=== PATIENT | female | born 1995 | race Caucasian/White ===

== ENCOUNTER 2018-05-27 03:30 | Observation (INO) | payer SELFPAY ==
[~2018-05-27] VITALS: Ht 165.1 cm; Wt 81.6 kg
[2018-05-27] MEDS ORDERED: PREN-380 PO (04:13)
[2018-05-27 04:19] VITALS: BP 110/59
== END 2018-05-27 04:35 | disposition home or self-care (01) ==
LOC: MLD 03:30
PROVIDERS: ADMIT Obstetrics & Gynecology; ATTEND Obstetrics & Gynecology
DX: O26.893 Other specified pregnancy related conditions, third trimester (principal); M54.9 Dorsalgia, unspecified; Z3A.38 38 weeks gestation of pregnancy
CPT/HCPCS: 81000; G0378

== ENCOUNTER 2018-07-26 08:41 | Observation (INO) | payer OTHER ==
[~2018-07-26 08:41] MED LIST: PREN-380 PO
[2018-07-26 10:32] VITALS: BP 118/77
== END 2018-07-26 11:00 | disposition home or self-care (01) ==
LOC: MLD 08:41
PROVIDERS: ADMIT Obstetrics & Gynecology; ATTEND Obstetrics & Gynecology
DX: O62.9 Abnormality of forces of labor, unspecified (principal); Z3A.37 37 weeks gestation of pregnancy
CPT/HCPCS: G0378